=== PATIENT | male | born 1975 | race American Indian/Alaskan Native ===

== ENCOUNTER 2016-10-16 03:41 | Emergency (ER) | payer SELFPAY ==
[2016-10-16 03:51] VITALS: BP 137/92
== END 2016-10-16 05:30 | disposition left against medical advice (07) ==
LOC: ED 03:41
DX: L84 Corns and callosities (principal); F20.9 Schizophrenia, unspecified; F17.200 Nicotine dependence, unspecified, uncomplicated; Z53.21 Procedure and treatment not carried out due to patient leaving prior to being seen by health care provider

== ENCOUNTER 2017-07-24 23:45 | Emergency (ER) | payer SELFPAY | END 2017-07-25 08:53 | disposition left against medical advice (07) | LOC: ED 23:45 | DX: Z53.21 Procedure and treatment not carried out due to patient leaving prior to being seen by health care provider (principal) ==

== ENCOUNTER 2017-07-26 01:27 | Emergency (ER) | payer SELFPAY | END 2017-07-26 01:28 | disposition left against medical advice (07) | LOC: ED 01:27 | DX: Z53.21 Procedure and treatment not carried out due to patient leaving prior to being seen by health care provider (principal) ==

== ENCOUNTER 2017-08-02 07:32 | Emergency (ER) | payer SELFPAY | END 2017-08-02 08:20 | disposition left against medical advice (07) | LOC: ED 07:32 | DX: M79.673 Pain in unspecified foot (principal); Z53.21 Procedure and treatment not carried out due to patient leaving prior to being seen by health care provider ==

== ENCOUNTER 2017-08-03 08:00 | Emergency (ER) | payer SELFPAY | END 2017-08-03 08:19 | disposition left against medical advice (07) | LOC: ED 08:00 | DX: M79.673 Pain in unspecified foot (principal); Z53.21 Procedure and treatment not carried out due to patient leaving prior to being seen by health care provider ==